=== PATIENT | female | born 1955 | race Caucasian/White ===

== ENCOUNTER 2021-01-27 12:41 | Emergency (ER) | payer OTHER ==
[2021-01-27 13:08] VITALS: TEMP 98; BMI 24.0
[2021-01-27 13:44] LABS: HEMOGLOBIN 12.7 GM/dl (10.7-15.3); RDW 13.4 % (11.6-15.6)
[2021-01-27 13:46] LABS: BASO % 1.9 % (0-2.0); HEMATOCRIT 39.9 % (32.4-45.2); LYMPH % 28.1 % (8-40); MCH 28.6 pg (25.7-33.7); MCHC 31.8 g/dl (32.0-36.0); MEAN CELL VOLUME 89.8 fl (80-96); MEAN PLT VOLUME 10.2 fl (7.5-11.1); MONO % 7.5 % (3.8-10.2); NEUT % 58.5 % (42.8-82.8); PLATELET COUNT 212 10^3/uL (134-434); RBC 4.45 M/mm3 (3.60-5.2); WHITE BLOOD COUNT 7.7 K/mm3 (4.0-10.8)
[2021-01-27 13:49] LABS: ALBUMIN 3.9 g/dl (3.4-5.0); ALK PHOS 86 U/L (45-117); ANION GAP 10 MMOL/L (8-16); BILIRUBIN,TOTAL 0.5 mg/dl (0.2-1); CALCIUM 9.3 mg/dl (8.5-10); CHLORIDE 102 mmol/L (98-107); CO2 26 mmol/L (21-32); CREATININE 0.8 mg/dl (0.55-1.3); GLUCOSE,RANDOM 87 mg/dl (74-106); SGOT/AST 29 U/L (15-37); SGPT/ALT 33 U/L (13-61); SODIUM 138 mmol/L (136-145); TOT PROT 6.9 g/dl (6.4-8.2)
[2021-01-28 08:58] VITALS: BP 148/76; PULSE 78
== END 2021-01-27 17:42 | disposition home or self-care (01) ==
LOC: FER 12:41
DX: R07.89 Other chest pain (principal)
CPT/HCPCS: 36415; 80053; 84484; 85025; 93005; 99284-25

== ENCOUNTER 2024-08-28 07:28 | Emergency (ER) | payer OTHER ==
[2024-08-28 07:34] VITALS: BP 145/73; PULSE 80; RESP 18; TEMP 97.5; BMI 26.0
[2024-08-28] MEDS ORDERED: TETANUS AND DIPHTHERIA TOXOID 0.5 ML DISP.SYRIN IM ONE (07:41)
[2024-08-28] MEDS ORDERED: DIPHTH,PERTUSS(ACELL),TET 0.5 ML DISP.SYRIN IM ONE (07:44)
[2024-08-28] MEDS: DIPHTH,PERTUSS(ACELL),TET 0.5 ML DISP.SYRIN IM ONE (08:30)
== END 2024-08-28 08:31 | disposition home or self-care (01) ==
LOC: FER 07:28
PROC: 3E0234Z Introduction of Serum, Toxoid and Vaccine into Muscle, Percutaneous Approach (ICD-10-PCS; principal; 2024-08-28)
DX: S91.311A Laceration without foreign body, right foot, initial encounter (principal); Z23 Encounter for immunization; W26.0XXA Contact with knife, initial encounter
CPT/HCPCS: 90471; 90715; 99284-25